=== PATIENT | male | born 1980 | race Two or more races ===

== ENCOUNTER 2021-09-28 16:42 | Emergency (ER) | payer OTHER ==
[~2021-09-28] VITALS: Ht 182.9 cm; Wt 95.3 kg
--- NOTE | 2021-09-28 17:00 | NUR ---
[id number] HOME W/ C/O "SOB" ALL DAY, ANXIOUS, AND STATES "MISTAKENLY TOOK METH LAST NIGHT THINKING IT WAS COCAINE". VERBALLY RESPONSIVE. TO ER BED 2.
[2021-09-28] MEDS ORDERED: ASPIRIN 325 MG TABLET PO ONE (17:30)
[2021-09-28] MEDS ORDERED: LORAZEPAM 1 MG TABLET ONE (17:42)
[2021-09-28] MEDS ORDERED: ASPIRIN 325 MG TABLET ONE (17:42)
[2021-09-28] MEDS ORDERED: LORAZEPAM 1 MG TABLET PO ONE (18:00)
[2021-09-28 18:10] LABS: BASOPHILS # (AUTO) 0.1 K/uL (0.0-0.2); BASOPHILS % (AUTO) 0.7 % (0.0-2.0); EOSINOPHILS % (AUTO) 0.9 % (0.0-6.0); HEMATOCRIT 45 % (39-51); HEMOGLOBIN 15.4 g/dL (13.5-17.5); LYMPHOCYTES # (AUTO) 2.5 K/uL (0.8-4.8); LYMPHOCYTES % (AUTO) 29.2 % (20.0-44.0); MEAN CORPUSCULAR HGB CONC 35 g/dl (31.0-36.0); MEAN CORPUSCULAR VOLUME 89 fL (80-96); MONOCYTES # (AUTO) 1.2 K/uL (0.1-1.30); MONOCYTES % (AUTO) 14.8 % (2.0-12.0); NEUTROPHILS # (AUTO) 4.6 K/uL (1.8-8.9); NEUTROPHILS % (AUTO) 54.4 % (43.0-81.0); PLATELET COUNT (AUTO) 292 K/uL (150-450); WHITE BLOOD COUNT (AUTO) 8.4 K/uL (4.3-11.0)
--- NOTE | 2021-09-28 19:49 | NUR ---
URINE COLLECTED AND SENT TO LAB
[2021-09-28 20:15] LABS: CALCIUM, SERUM 9.6 mg/dL (8.5-10.1); CARBON DIOXIDE 20 mmol/L (21-32); CHLORIDE 97 mmol/L (98-107); CREATININE 1.4 mg/dL (0.6-1.3); GLUCOSE 122 mg/dL (74-106); SODIUM SERUM 137 mmol/L (136-145); UREA NITROGEN, BLOOD 15 mg/dL (7-18)
[2021-09-28 20:18] LABS: POTASSIUM 2.8 mmol/L (3.5-5.1)
[2021-09-28] MEDS ORDERED: POTASSIUM CHLORIDE 20 MEQ TAB.PRT.SR PO ONE ×2 (20:30→21:23)
[2021-09-28] MEDS ORDERED: POTA-58 PO (21:10)
--- NOTE | 2021-09-28 21:31 | NUR ---
Patient discharged to home in stable condition. Written and verbal after care instructions given. Patient verbalizes understanding of instruction. Pt ambulatory with a steady gait
[2021-09-28 21:32] VITALS: BP 153/94
== END 2021-09-28 21:33 | disposition home or self-care (01) ==
LOC: ER 16:50
DX: F19.10 Other psychoactive substance abuse, uncomplicated (principal); E87.6 Hypokalemia; F41.9 Anxiety disorder, unspecified
CPT/HCPCS: 36415; 71045-TC; 80048-TC; 83880; 84484-TC; 85025-TC; 85378-TC